=== PATIENT | male | born 1990 | race Two or more races ===

== ENCOUNTER 2017-01-28 20:39 | Emergency (ER) | payer OTHER ==
[~2017-01-28] VITALS: Ht 167.6 cm; Wt 72.5 kg
[2017-01-28] MEDS ORDERED: SODIUM CHLORIDE FLUSH 10ML SYR IVF ONE (21:00)
[2017-01-28 21:20] LABS: HEMATOCRIT 49.5 % (39.2-51.8); WHITE BLOOD COUNT 4.4 x10^3/uL (3.4-10)
[2017-01-28] MEDS ORDERED: ATOR20TA9 PO (21:25)
[2017-01-28 21:30] LABS: BLOOD UREA NITROGEN 23 mg/dL (7-18)
[2017-01-28 21:33] LABS: ASPARTATE AMINO TRANSFERASE 28 U/L (15-37)
[2017-01-28] MEDS ORDERED: OMNIPAQUE 350 MG/ML, 100ML BOTTLE ONE (21:39)
[2017-01-28 22:16] VITALS: BP 105/55
== END 2017-01-28 22:11 | disposition home or self-care (01) ==
LOC: ED 21:14
DX: R10.31 Right lower quadrant pain (principal); Z90.49 Acquired absence of other specified parts of digestive tract; E78.5 Hyperlipidemia, unspecified
CPT/HCPCS: 36415; 74177; 80053; 81003; 83690; 85025; 99285; Q9967